=== PATIENT | male | born 1955 | race Caucasian/White ===

== ENCOUNTER → 2023-07-18 08:51 | Outpatient (CLI) | payer MEDICARE, MEDICAID, SELFPAY ==
[2023-07-20 14:09] LABS: Tacrolimus 15.9
== END ==
LOC: LAB 08:54
PROVIDERS: Referring Provider Internal Medicine Advanced Heart Failure and Transplant Cardiology; Visit Provider Internal Medicine Advanced Heart Failure and Transplant Cardiology
DX: Z94.1 Heart transplant status (principal)
CPT/HCPCS: 36415; 80197

== ENCOUNTER → 2023-08-17 08:12 | Outpatient (CLI) | payer MEDICARE, SELFPAY ==
[2023-08-19 09:41] LABS: Tacrolimus 7.4
== END ==
LOC: LAB 08:13
PROVIDERS: Referring Provider Internal Medicine Advanced Heart Failure and Transplant Cardiology; Visit Provider Internal Medicine Advanced Heart Failure and Transplant Cardiology
DX: Z94.1 Heart transplant status (principal)
CPT/HCPCS: 36415; 80197

== ENCOUNTER 2023-09-05 10:15 | Outpatient (RCR) | payer MEDICARE, MEDICAID, SELFPAY | END 2023-09-05 12:15 | LOC: CAR 10:15 | PROVIDERS: Referring Provider Internal Medicine Advanced Heart Failure and Transplant Cardiology; Visit Provider Internal Medicine Advanced Heart Failure and Transplant Cardiology | DX: Z94.1 Heart transplant status (principal) | CPT/HCPCS: 93798 ==